=== PATIENT | female | born 1995 ===

== ENCOUNTER 2017-02-24 11:30 | Emergency (ER) | payer MEDICAID, OTHER ==
[2017-02-24 11:35] VITALS: BP 113/70; PULSE 83; RESP 16; TEMP 96.7; O2SAT 98; BMI 24.5
--- NOTE | 2017-02-24 12:24 | ED PDOC ---
HPI: Eye Injury/Pain Time Seen by Provider: 02/24/17 12:04 Chief Complaint (Nursing): Eye Problem Chief Complaint (Provider): Right eye itching, discharge, crusting History Per: Patient History/Exam Limitations: no limitations Onset/Duration Of Symptoms: Days (x3) Current Symptoms Are (Timing): Still Present Additional Complaint(s): Luz Cervantes is a 21 year old female presenting to the ED for an evaluation of right eye itching, discharge, and crusting occurring for 3 days prior to arrival associated with swelling. The patient reports the crusting occurs especially in the morning when she wakes up. She denies any sick contacts, fever , chills, cough or sore throat. PMD: None Provided Past Medical History Reviewed: Historical Data, Nursing Documentation, Vital Signs Vital Signs: Last Vital Signs Temp 96.7 F L 02/24/17 11:34 Pulse 83 02/24/17 11:34 Resp 16 02/24/17 11:34 BP 113/70 02/24/17 11:34 Pulse Ox 98 02/24/17 11:53 - Medical History PMH: Anxiety Denies: Diabetes, Hepatitis, HIV, HTN, Seizures, Sexually Transmitted Disease - Family History Family History: States: No Known Family Hx - Home Medications Home Medications: Ambulatory Orders Medication Instructions Recorded Polymyxin/Trimethoprim Sulfate 1 - 2 drop OD TID #1 bottle 02/24/17 [Polytrim Ophth Soln] - Allergies Allergies/Adverse Reactions: Allergies Allergy/AdvReac Type Severity Reaction Status Date / Time No Known Allergies Allergy Verified 02/24/17 11:53 Review of Systems ROS Statement: Except As Marked, All Systems Reviewed And Found Negative Constitutional: Negative for: Fever, Chills Eyes: Positive for: Pain (right eye itching, dishcarge, and crusting), Other ( right eye swelling) ENT: Negative for: Throat Pain Respiratory: Negative for: Cough Physical Exam - Reviewed Nursing Documentation Reviewed: Yes Vital Signs Reviewed: Yes - Physical Exam Appears: Positive for: Non-toxic, No Acute Distress Head Exam: Positive for: ATRAUMATIC, NORMOCEPHALIC Skin: Positive for: Normal Color, Warm, Dry Eye Exam: Positive for: EOMI, PERRL, Periorbital swelling (right eye: mild upper lid swelling). Negative for: Other (no discharge) Neurologic/Psych: Positive for: Alert, Oriented (x3). Negative for: Motor/ Sensory Deficits - ECG O2 Sat by Pulse Oximetry: 98 (RA) Pulse Ox Interpretation: Normal Medical Decision Making Medical Decision Making: Time: 12:04 Impression: Viral Conjunctivitis Plan: * Discuss with patient to follow up with PMD. Will rx antibiotic eye drops. Patient agrees to treatment plan. Scribe Attestation: Documented by Lotus Cheney, acting as a scribe for Florina Coats PA-C. Provider Scribe Attestation: All medical record entries made by the Scribe were at my direction and personally dictated by me. I have reviewed the chart and agree that the record accurately reflects my personal performance of the history, physical exam, medical decision making, and the department course for this patient. I have also personally directed, reviewed, and agree with the discharge instructions and disposition. Disposition - Clinical Impression Clinical Impression: Conjunctivitis - Patient ED Disposition Is Patient to be Admitted: No Counseled Patient/Family Regarding: Diagnosis, Need For Followup, Rx Given - Disposition Disposition: Routine/Home Disposition Time: 10:16 Condition: STABLE Prescriptions: Polymyxin/Trimethoprim Sulfate [Polytrim Ophth Soln] 1 - 2 drop OD TID #1 bottle Instructions: Conjunctivitis (ED) Forms: [employer] (Azeri)
== END 2017-02-24 12:52 | disposition home or self-care (01) ==
LOC: H.ER 11:30
DX: B30.9 Viral conjunctivitis, unspecified (principal); F41.9 Anxiety disorder, unspecified